=== PATIENT | female | born 1965 | race African-American/Black ===

== ENCOUNTER 2020-10-13 12:10 | Emergency (ER) | payer OTHER ==
[2020-10-13 12:25] VITALS: BP 148/79; PULSE 83; TEMP 98; BMI 35.9
[2020-10-13] MEDS ORDERED: KETOROLAC TROMETHAMINE 60 MG/2 ML VIAL IM ONE (12:49)
[2020-10-13] MEDS ORDERED: KETOROLAC TROMETHAMINE 60 MG/2 ML VIAL ONE (12:51)
== END 2020-10-13 14:25 | disposition home or self-care (01) ==
LOC: JERFT 12:10
PROC: 3E0233Z Introduction of Anti-inflammatory into Muscle, Percutaneous Approach (ICD-10-PCS; principal; 2020-10-13)
DX: M25.561 Pain in right knee (principal)
CPT/HCPCS: 73560-TC-RT-FY; 99284-25

== ENCOUNTER 2020-11-23 06:04 | Day surgery (SDC) | payer OTHER ==
[2020-11-18 15:51] VITALS: BMI 35.9
[~2020-11-23 06:04] MED LIST: BUPIVICAINE 0.25%/MORPH PF/KETOROLAC - 51ML DISP.SYRINGE IA ONE; GELATIN, ABSORBABLE 100 EACH SPONGE TP ONE; THROMBIN (BOVINE) 5,000 UNIT VIAL TP ONE
[2020-11-23] MEDS ORDERED: TRANEXAMIC ACID 1000 MG/10 ML VIAL IVPUSH ONE (06:28)
[2020-11-23] MEDS ORDERED: CEFAZOLIN 2 GM in DEXTROSE 5%-WATER - 50 ML IVPB ONE (06:28)
[2020-11-23] MEDS ORDERED: LOCK ITEM NR ONE (06:43)
[2020-11-23] MEDS: CELECOXIB 200 MG CAPSULE PO ONE ×2 (06:45→12:18)
[2020-11-23] MEDS ORDERED: MIDAZOLAM HCL 2 MG/2 ML SINGLE DOSE VIAL ONE ×2 (06:48→07:44)
[2020-11-23] MEDS ORDERED: BUPIVACAINE HCL/PF 0.5% (5MG/ML) 10 ML VIAL ONE (06:48)
[2020-11-23] MEDS ORDERED: BUPIVACAINE LIPOSOME/PF (EXPAREL) 266 MG/20 ML VIAL ONE (06:48)
[2020-11-23] MEDS ORDERED: LIDOCAINE HCL/PF 2% SDV 5ML VIAL ONE (07:10)
[2020-11-23] MEDS ORDERED: ceFAZolin SODIUM 1 GM VIAL ONE ×3 (07:10→16:47)
[2020-11-23] MEDS ORDERED: PROPOFOL 20 ML ONE ×2 (07:11)
[2020-11-23] MEDS ORDERED: SUCCINYLCHOLINE CHLORIDE 200 MG/10 ML SYRINGE ONE (07:11)
[2020-11-23] MEDS ORDERED: THROMBIN (BOVINE) 5,000 UNIT VIAL TP ONE ×2 (07:14→09:20)
[2020-11-23] MEDS ORDERED: ONDANSETRON 4 MG/2 ML VIAL IVPUSH PRN ×2 (07:53→10:05)
[2020-11-23] MEDS ORDERED: MAG HYDROX/AL HYDROX/SIMETH 30 ML UNIT-DOSE CUP PO PRN (07:53)
[2020-11-23] MEDS ORDERED: ONDANSETRON 4 MG/2 ML VIAL ONE (08:37)
[2020-11-23] MEDS ORDERED: KETOROLAC TROMETHAMINE 30 MG/1 ML VIAL ONE (08:37)
[2020-11-23] MEDS ORDERED: TRANEXAMIC ACID 1000 MG/10 ML VIAL ONE (08:49)
[2020-11-23] MEDS ORDERED: BUPIVICAINE 0.25%/MORPH PF/KETOROLAC - 51ML DISP.SYRINGE IA ONE ×3 (09:00→09:36)
[2020-11-23] MEDS ORDERED: GELATIN, ABSORBABLE 100 EACH SPONGE TP ONE (09:20)
[2020-11-23] MEDS ORDERED: PATIENT'S OWN MEDICATION (NON-FORMULARY) (Losartan/Hydrochlorothiazide [Losartan-Hctz 100- PO SCH (10:00)
[2020-11-23] MEDS ORDERED: PATIENT'S OWN MEDICATION (NON-FORMULARY) (Pravastatin Sodium 20 MG Tablet) PO SCH (10:00)
[2020-11-23] MEDS ORDERED: PATIENT'S OWN MEDICATION (NON-FORMULARY) (Omeprazole [Omeprazole] 20 MG Tablet.Dr) PO SCH (10:00)
[2020-11-23] MEDS ORDERED: oxyCODONE HCL 5 MG TABLET PO PRN (10:05)
[2020-11-23] MEDS ORDERED: ACETAMINOPHEN 1000 MG/100 ML VIAL IVPB ONE (10:05)
[2020-11-23] MEDS ORDERED: LACTATED RINGERS SOLUTION 1,000 ML IV SCH (10:15)
[2020-11-23] MEDS: LACTATED RINGERS SOLUTION 1,000 ML IV SCH ×2 (10:50→19:23)
[2020-11-23] MEDS: LOSARTAN 50MG/HCTZ 12.5MG 1 TAB PO SCH (12:20)
[2020-11-23] MEDS: cloNIDine HCL 0.1 MG TABLET PO SCH (12:20)
[2020-11-23] MEDS: KETOROLAC TROMETHAMINE 30 MG/1 ML VIAL IVPUSH SCH ×2 (12:21→16:58)
[2020-11-23] MEDS: SENNOSIDES/DOCUSATE COMBO (SENNA PLUS) TABLET (UD) PO SCH ×2 (12:21→21:11)
[2020-11-23] MEDS: MULTIVITAMINS (DAILY MVI) TABLET (FP) PO SCH (12:21)
[2020-11-23] MEDS: amLODIPine BESYLATE 5 MG TABLET (FP) PO SCH (12:21)
[2020-11-23] MEDS: PANTOPRAZOLE 40 MG TABLET PO SCH (12:21)
[2020-11-23] MEDS: oxyCODONE HCL 5 MG TABLET PO PRN (15:00)
[2020-11-23] MEDS ORDERED: DEXTROSE 5%-WATER - 50 ML IVPB ONE (16:48)
[2020-11-23] MEDS: CEFAZOLIN 2 GM in DEXTROSE 5%-WATER - 50 ML IVPB SCH (16:59)
[2020-11-23] MEDS: ACETAMINOPHEN 500 MG TABLET (FP) PO SCH (18:52)
[2020-11-23] MEDS: oxyCODONE HCL 10 MG SUSTAINED ACTING TABLET PO SCH (21:11)
[2020-11-23] MEDS ORDERED: DOXEPIN HCL 25 MG CAPSULE PO SCH (22:00)
[2020-11-23] MEDS ORDERED: ATORVASTATIN CA 10 MG TABLET (FP) PO SCH (22:00)
[2020-11-24] MEDS ORDERED: ceFAZolin SODIUM 1 GM VIAL ONE (00:10)
[2020-11-24] MEDS ORDERED: DEXTROSE 5%-WATER - 50 ML IVPB ONE (00:11)
[2020-11-24] MEDS: CEFAZOLIN 2 GM in DEXTROSE 5%-WATER - 50 ML IVPB SCH (00:28)
[2020-11-24] MEDS: ACETAMINOPHEN 500 MG TABLET (FP) PO SCH ×3 (00:33→13:22)
[2020-11-24 06:19] VITALS: BP 133/66; PULSE 91; TEMP 100
[2020-11-24] MEDS ORDERED: ASPIRIN 325 MG TABLET PO SCH (08:00)
[2020-11-24] MEDS: cloNIDine HCL 0.1 MG TABLET PO SCH (10:08)
[2020-11-24] MEDS: amLODIPine BESYLATE 5 MG TABLET (FP) PO SCH (10:08)
[2020-11-24] MEDS: PANTOPRAZOLE 40 MG TABLET PO SCH (10:08)
[2020-11-24] MEDS: SENNOSIDES/DOCUSATE COMBO (SENNA PLUS) TABLET (UD) PO SCH (10:09)
[2020-11-24] MEDS: oxyCODONE HCL 5 MG TABLET PO PRN (10:09)
[2020-11-24] MEDS: oxyCODONE HCL 10 MG SUSTAINED ACTING TABLET PO SCH (10:10)
[2020-11-24] MEDS: MULTIVITAMINS (DAILY MVI) TABLET (FP) PO SCH (10:10)
[2020-11-24] MEDS: LOSARTAN 50MG/HCTZ 12.5MG 1 TAB PO SCH (10:13)
== END 2020-11-24 12:30 | disposition home or self-care (01) ==
LOC: FASU 06:04 → FM/S 11:16 → FASU 11-24 12:30
PROVIDERS: ATTEND Orthopaedic Surgery
PROC: 8E0YXBZ Computer Assisted Procedure of Lower Extremity (ICD-10-PCS; 2020-11-23)
PROC: 8E0Y0CZ Robotic Assisted Procedure of Lower Extremity, Open Approach (ICD-10-PCS; 2020-11-23)
PROC: 0SRC0L9 Replacement of Right Knee Joint with Medial Unicondylar Synthetic Substitute, Cemented, Open Approach (ICD-10-PCS; principal; 2020-11-23 08:39)
DX: M17.11 Unilateral primary osteoarthritis, right knee (principal)
CPT/HCPCS: 20985; 27446; C1776; S2900; 73560-TC-RT-FY; 94010; 94760; 97010-GP; 97116-GP; 97163-GP; J0131; J0735

== ENCOUNTER 2021-11-30 04:04 | Day surgery (SDC) | payer OTHER ==
[2021-11-28 15:48] VITALS: BMI 38.2
[2021-11-30] MEDS ORDERED: LIDOCAINE 1%/EPI 1:100000 (20 ML MULTI DOSE VIAL) ONE (09:34)
[2021-11-30] MEDS ORDERED: BUPIVACAINE HCL/PF 0.5% (5MG/ML) 10 ML VIAL ONE (09:34)
[2021-11-30] MEDS ORDERED: ONDANSETRON 4 MG/2 ML VIAL IVPUSH PRN (11:25)
[2021-11-30] MEDS ORDERED: oxyCODONE HCL 5 MG TABLET PO PRN ×2 (11:25)
[2021-11-30] MEDS ORDERED: PROMETHAZINE HCL 25 MG/1 ML VIAL IVPUSH PRN (11:25)
[2021-11-30] MEDS ORDERED: LACTATED RINGERS SOLUTION 1,000 ML IV SCH (11:30)
[2021-11-30] MEDS ORDERED: PROPOFOL 20 ML ONE ×2 (11:34→11:51)
[2021-11-30] MEDS ORDERED: DEXAMETHASONE SOD PHOSPHATE 4 MG/1 ML VIAL ONE (11:35)
[2021-11-30] MEDS ORDERED: ONDANSETRON 4 MG/2 ML VIAL ONE (11:35)
[2021-11-30] MEDS ORDERED: LIDOCAINE HCL/PF 2% SDV 5ML VIAL ONE (11:35)
[2021-11-30] MEDS ORDERED: ceFAZolin SODIUM 1 GM VIAL ONE (11:35)
[2021-11-30] MEDS ORDERED: KETOROLAC TROMETHAMINE 30 MG/1 ML VIAL ONE (11:38)
[2021-11-30] MEDS ORDERED: ceFAZolin SODIUM 1 GM VIAL IVPB ONE (11:45)
[2021-11-30 14:28] VITALS: RESP 20; TEMP 97
[2021-11-30 15:37] VITALS: BP 127/60; PULSE 97
== END 2021-11-30 15:40 | disposition home or self-care (01) ==
LOC: JASU-SURG 04:04
PROVIDERS: ATTEND Orthopaedic Surgery
PROC: 0SSCXZZ Reposition Right Knee Joint, External Approach (ICD-10-PCS; 2021-11-30)
PROC: 0RBJ4ZZ Excision of Right Shoulder Joint, Percutaneous Endoscopic Approach (ICD-10-PCS; principal; 2021-11-30 11:45)
DX: M24.661 Ankylosis, right knee (principal); Z96.651 Presence of right artificial knee joint
CPT/HCPCS: 94760

== ENCOUNTER 2023-04-22 15:15 | Emergency (ER) | payer OTHER ==
[2023-04-22 15:22] VITALS: BP 127/73; PULSE 59; RESP 18; TEMP 98.4; BMI 39.1
[2023-04-22] MEDS ORDERED: FAMOTIDINE 20 MG/50 ML IVPB 20 MG/50 ML MG IVPB ONE (16:43)
[2023-04-22] MEDS ORDERED: ACETAMINOPHEN INJECTION 100 ML IVPB ONE (16:43)
[2023-04-22] MEDS: FAMOTIDINE 20 MG/50 ML IVPB 20 MG/50 ML MG IVPB ONE (16:55)
[2023-04-22] MEDS: ACETAMINOPHEN 1000 MG/100 ML BAG IVPB ONE (16:55)
[2023-04-22 17:04] LABS: BASO % 0.7 % (0-2.0); EOS % 0.5 % (0-4.5); HEMATOCRIT 37.6 % (32.4-45.2); HEMOGLOBIN 12.2 GM/dL (10.7-15.3); MCH 27.4 pg (25.7-33.7); MCHC 32.5 g/dl (32.0-36.0); MEAN CELL VOLUME 84.5 fl (80-96); MEAN PLT VOLUME 7.1 fl (7.5-11.1); MONO % 6.3 % (3.8-10.2); NEUT % 69.5 % (42.8-82.8); PLATELET COUNT 488 10^3/uL (134-434); RBC 4.45 M/mm3 (3.60-5.2); RDW 15.8 % (11.6-15.6); WHITE BLOOD COUNT 13.5 K/mm3 (4.0-10.0)
[2023-04-22 17:21] LABS: POTASSIUM 3.2 mmol/L (3.5-5.1)
[2023-04-22 17:24] LABS: ALBUMIN 3.3 g/dl (3.4-5.0); BLOOD UREA NITROGEN 5.2 mg/dL (7-18); CALCIUM 9.2 mg/dL (8.5-10.1)
[2023-04-22 17:27] LABS: CREATININE 0.7 mg/dL (0.55-1.3)
[2023-04-22 17:29] LABS: BILIRUBIN,TOTAL 0.4 mg/dL (0.2-1)
[2023-04-22] MEDS ORDERED: POTASSIUM CHLORIDE ORAL LIQUID 20 MEQ/15 ML ONE (18:39)
[2023-04-22] MEDS: POTASSIUM CHLORIDE ORAL LIQUID 20 MEQ/15 ML PO ONE (19:01)
[2023-04-22] MEDS ORDERED: SUCRALFATE 1 GM TABLET (FP) ONE (20:20)
[2023-04-22] MEDS ORDERED: MAG HYDROX/AL HYDROX/SIMETH 30 ML UNIT-DOSE CUP ONE (20:20)
[2023-04-22] MEDS: MAG HYDROX/AL HYDROX/SIMETH 30 ML UNIT-DOSE CUP PO ONE (20:28)
[2023-04-22] MEDS: SUCRALFATE 1 GM TABLET (FP) PO ONE (20:28)
[2023-04-22] MEDS: MAGNESIUM SULF 50% (8.12 MEQ/2 ML-1 GM VIAL) IVPB ONE (20:28)
[2023-04-22] MEDS ORDERED: AMPICILLIN NA/SULBACTAM NA 1.5 GM VIAL ONE (21:25)
[2023-04-22] MEDS: AMPICILLIN NA/SULBACTAM NA 1.5 GM in SODIUM CHLORIDE 100 ML IVPB ONE (21:43)
== END 2023-04-22 22:06 | disposition home or self-care (01) ==
LOC: JER 15:15
PROC: 3E03329 Introduction of Other Anti-infective into Peripheral Vein, Percutaneous Approach (ICD-10-PCS; principal; 2023-04-22)
PROC: 3E033GC Introduction of Other Therapeutic Substance into Peripheral Vein, Percutaneous Approach (ICD-10-PCS; 2023-04-22)
PROC: 3E033NZ Introduction of Analgesics, Hypnotics, Sedatives into Peripheral Vein, Percutaneous Approach (ICD-10-PCS; 2023-04-22)
PROC: 3E033GC Introduction of Other Therapeutic Substance into Peripheral Vein, Percutaneous Approach (ICD-10-PCS; 2023-04-22)
DX: K62.5 Hemorrhage of anus and rectum (principal); K52.9 Noninfective gastroenteritis and colitis, unspecified; K59.00 Constipation, unspecified
CPT/HCPCS: 36415; 74177-TC; 80053; 82272; 83690; 85025; 99285-25; J0131; Q9967